=== PATIENT | female | born 1980 | race Caucasian/White ===

== ENCOUNTER → 2021-06-17 08:16 | Outpatient (CLI) | payer OTHER, SELFPAY ==
[2021-06-17 09:05] LABS: Add Manual Diff / Slide Review NO; Basophils Absolute Auto 100 /uL (0-100); Eosinophils Absolute Auto 200 /uL (0-450); Eosinophils Percent Auto 3.3 % (2-4); Hemoglobin 13.1 g/dL (12.0-16.0); Lymphocytes Absolute Auto 2000 /uL (1100-4500); Lymphocytes Percent Auto 36.1 % (25-40); Mean Corpuscular HGB Conc 33.7 % (30-36); Mean Corpuscular Hemoglobin 30.7 PG (26-34); Mean Corpuscular Volume 91.2 fL (80-100); Monocytes Absolute Auto 400 /uL (0-900); Monocytes Percent Auto 6.9 % (3-14); Neutrophils Absolute Auto 2900 /uL (1500-7000); Neutrophils Percent Auto 52.7 % (50-75); Platelet Count 292 X10^3/uL (150-400); Red Blood Cell Count 4.28 X10^6/uL (4.0-5.2); Red Cell Distribution Width 13.4 % (11.6-14.8); White Blood Cell Count 5.6 X10^3/uL (4.5-11.0)
[2021-06-17 09:53] LABS: Alanine Aminotransferase 14 IU/L (<35); Albumin 4.2 g/dL (3.5-5.0); Albumin Globulin Ratio 1.6 (1.0-2.8); Alkaline Phosphatase 58 U/L (38-126); Aspartate Aminotransferase 20 IU/L (14-36); BUN Creatinine Ratio 20.8 (6-22); Bilirubin Total 0.4 mg/dL (0.2-1.3); Blood Urea Nitrogen 16 mg/dL (7-17); Calcium 9.2 mg/dL (8.4-10.2); Carbon Dioxide 27 mmol/L (22-32); Chloride 104 mmol/L (98-107); Cholesterol 202 mg/dL (140-199); Estimated Glomerular Filt Rate > 60.0 mL/min (>60); Globulin 2.6 g/dL (1.7-4.1); Glucose 91 mg/dL (70-100); HDL Cholesterol 44 mg/dL (40-60); HEMOLYSIS < 15 (0-50); LDL Cholesterol Calculated 120 mg/dL (<100); Potassium 4.3 mmol/L (3.4-5.1); Sodium 140 mmol/L (137-145); Total Protein 6.8 g/dL (6.3-8.2); Triglycerides 191 mg/dL (35-150)
[2021-06-17 10:20] LABS: TSH w/ Reflex to FT4 1.68 uIU/mL (0.47-4.68)
== END ==
PROVIDERS: PCP Family Medicine; Referring Provider Family Medicine; Visit Provider Family Medicine
DX: G43.009 Migraine without aura, not intractable, without status migrainosus (principal); L70.9 Acne, unspecified; R63.5 Abnormal weight gain
CPT/HCPCS: 36415; 80053; 80061; 84443; 85025

== ENCOUNTER → 2021-07-14 15:46 | Outpatient (CLI) | payer OTHER, SELFPAY ==
[2021-07-14 17:33] LABS: Pregnancy Test Urine Negative (Negative)
== END ==
PROVIDERS: PCP Family Medicine; Referring Provider Family Medicine; Visit Provider Family Medicine
DX: N92.6 Irregular menstruation, unspecified (principal)
CPT/HCPCS: 81025

== ENCOUNTER → 2022-10-05 06:49 | Outpatient (CLI) | payer OTHER, SELFPAY ==
--- NOTE | 2022-10-05 06:50 | DI.US.S_ITS ---
PROCEDURE: US PELVIC COMPLETE INDICATIONS: left lower abdominal pain TECHNIQUE: Real-time scanning was performed of the pelvic organs, with image documentation. Additional endovaginal scanning was necessary due to incomplete visualization of the adnexal and endometrial structures by transabdominal scanning. COMPARISON: None. FINDINGS: Uterus: Uterus is anteverted and normal in size at 9.8 x 5.1 x 6.4 cm. The myometrium is homogeneous. The endometrium measures 14.3 mm combined thickness. No abnormal vascularity can be seen along the endometrial stripe. Incidental note is made of nabothian cysts. The largest nabothian cyst measures up to 1.9 cm. Ovaries: The right ovary measures 3.5 x 1.6 x 1.8 cm, with a calculated ovarian volume of 5.3 cc. The left ovary measures by 2.8 x 3.1 x 1.6 cm, with a calculated ovarian volume of 6.9 cc. The ovaries have a normal sonographic appearance. Less than 12 follicles can be seen in each ovary. No adnexal masses are seen. Other: No pathologic free abdominal or pelvic fluid. IMPRESSION: No imaging explanation is found for this patient's presenting symptoms. We strive to produce accurate, complete, and clear reports of imaging services. To assist us in improving patient care, this report was composed using standard report templates and voice recognition software. Therefore, it may contain abnormal punctuation, insertions and/or omissions. Occasional wrong-word or sound-alike substitutions may occur. Though we review the report and make efforts to correct it, we do recommend that the report be read carefully in proper context to recognize any text inaccuracies. Dictated by: Santos Maher M.D. on 10/05/2022 at 13:11 Transcribed by: EDWIN on 10/05/2022 at 13:32 Approved by: Santos Maher M.D. on 10/05/2022 at 16:47
[2022-10-05 08:30] LABS: Pregnancy Test Urine Negative (Negative)
== END ==
PROVIDERS: PCP Family Medicine; Referring Provider Family Medicine; Visit Provider Family Medicine
DX: N88.8 Other specified noninflammatory disorders of cervix uteri; R10.32 Left lower quadrant pain; Z30.09 Encounter for other general counseling and advice on contraception
CPT/HCPCS: 76830; 76856; 81025; 93975

== ENCOUNTER → 2022-11-25 | Outpatient (CLI) | payer OTHER, SELFPAY ==
--- NOTE | 2022-11-25 13:01 | DI.MG.S_ITS ---
BILATERAL DIGITAL SCREENING MAMMOGRAM 3D/2D WITH CAD: 11/25/2022 CLINICAL: Routine screening. Family history of breast cancer. Baseline exam. No prior exams were available for comparison. Both breasts are heterogeneously dense, which may obscure small masses (category c / 51-75% glandular tissue). Current study was also evaluated with a Computer Aided Detection (CAD) system. No significant masses, calcifications, or other findings are seen in either breast. IMPRESSION: NEGATIVE There is no mammographic evidence of malignancy. A 1 year screening mammogram is recommended. Based on the Tyrer Cuzick model (a risk assessment model) the patient's lifetime risk is 13.2% and her 10 year risk is 1.7%. According to the ACR, ACS, and NCCN guidelines, an annual breast MRI exam along with mammogram is recommended if the patient's lifetime risk is 20% or greater. This exam was interpreted at Station ID: [id number]. NOTE: For mammograms, a report in lay terms will be sent to the patient. Approximately 15% of breast malignancies will not be visualized mammographically. In the management of a palpable breast mass, a negative mammogram must not discourage biopsy of a clinically suspicious lesion. Electronically Signed By: Denisha garcía/remy:11/27/2022 11:58:58 letter sent: Normal Exam ACR BI-RADS Category 1: Negative 3341F
== END ==
LOC: MAMMO 13:01
PROVIDERS: PCP Family Medicine; Referring Provider Family Medicine; Visit Provider Family Medicine
DX: Z12.31 Encounter for screening mammogram for malignant neoplasm of breast (principal); Z80.3 Family history of malignant neoplasm of breast
CPT/HCPCS: 77063; 77067

== ENCOUNTER → 2022-11-27 07:15 | Outpatient (CLI) | payer OTHER, SELFPAY ==
[2022-11-27 09:20] LABS: Glucose 98 mg/dL (70-100)
[2022-11-27 09:32] LABS: Follicle Stimulating Hormone 3.35 mIU/mL; Luteinizing Hormone 6.59 mIU/mL
== END ==
PROVIDERS: PCP Family Medicine; Referring Provider Obstetrics & Gynecology; Visit Provider Obstetrics & Gynecology
DX: L70.9 Acne, unspecified (principal); E28.2 Polycystic ovarian syndrome
CPT/HCPCS: 36415; 82947; 83001; 83002; 83525

== ENCOUNTER 2022-12-18 08:38 | Day surgery (SDC) | payer OTHER, SELFPAY ==
[2022-12-13 08:25] VITALS: BMI 25.4
[2022-12-18 08:57] VITALS: BMI 25.4
[2022-12-18 09:02] VITALS: BP 113/73; PULSE 68; RESP 19; TEMP 36.6; O2SAT 97
[2022-12-18] MEDS: SCOPOLAMINE 1 PATCH TOP (09:13)
[2022-12-18] MEDS: LACTATED RINGERS 1,000 ML 42 ML IV (09:13)
[2022-12-18] MEDS: ACETAMINOPHEN 325 MG TABLET 975 MG PO (09:13)
--- NOTE | 2022-12-18 09:25 | PM.GYNHP.1 ---
History of Present Illness History of Present Illness Reason for admission: pelvic pain Narrative: Asiya Levy is a 42 year old female 4 para 4 who presents for a diagnostic laparoscopy with possible lysis of adhesions due to pelvic pain and hormonal imbalance. Patient reports that after her she started having irritable bowel symptoms and pelvic pain. [facility] Medical History (Updated 12/13/22 @ 08:31 by Piedad Ag RN) Acne (~2018) Allergies Anxiety Chicken pox Depression (~2010) Herpes (~2003) Migraine headache without aura (~2015) Psoriasis Surgical History (Updated 06/01/21 @ 19:25 by Fatoumata Melara) Anesthesia History of section Family History (Updated 06/01/21 @ 19:26 by Fatoumata Melara) Sister Mental health problem History of heart disease Social History household members: spouse and children Smoking Status: Former smoker alcohol intake: never Meds Home Medications and Allergies Home Medications Medication Instructions Recorded Confirmed Type escitalopram oxalate 10 mg tablet 10 mg PO DAILY #90 tabs 10/30/22 12/18/22 Rx (Lexapro) norgestimate 0.25 mg-ethinyl 1 tab PO DAILY #84 tabs 11/23/22 12/18/22 Rx estradiol 35 mcg tablet (Sanders-Linyah) sumatriptan succinate 25 mg tablet See Rx Instructions .Route 12/14/22 12/18/22 Rx .COMPLEX #30 tabs ciclesonide 37 mcg/actuation nasal 1 spray intranasal DAILY PRN 12/18/22 12/18/22 History HFA inhaler (Zetonna) Allergy Symptoms Allergies Allergy/AdvReac Type Severity Reaction Status Date / Time No Known Drug Allergies Allergy Verified 12/18/22 08:55 Exam Vital Signs (past 8 hours): - 12/18/22 09:02 Temperature 97.8 F Pulse Rate 68 Respiratory Rate 19 Blood Pressure 113/73 Pulse Oximetry 97 Oxygen Delivery Method Room Air Oxygen Delivery Method Room Air Narrative Exam Narrative: HEENT: No thyromegaly, no anterior cervical or supraclavicular lymphadenopathy. Lungs:Clear to auscultation bilaterally, no wheezes. Cardiovascular: Regular rate and rhythm, no murmurs, rubs, or gallops. Abdomen: Well-healed scars. No hepatosplenomegaly. No masses palpable. External genitalia: Normal Vagina: Normal Cervix: Normal Bimanual exam: 7 Week size anteverted uterus. Mobile. Slight adnexal tenderness. Extremities: No edema Assessment & Plan Assessment & Plan narrative: Assessment: 42-year-old 4 para 4 with pelvic pain and hormonal imbalance Plan: Diagnostic laparoscopy with possible lysis of adhesions The risks, benefits, and alternatives to the procedure were explained to the patient. The risks including bleeding, infection, injury to the bowel, bladder, or ureters. She understands these risks and agrees to proceed. A full par Q was held and consent form was signed. Time Spent With Patient Time with patient: less than 30 minutes
--- NOTE | 2022-12-18 09:28 | PM.PREOP ---
Pre-operative Note COVID-19 Criteria for continued procedure: Non-surgical alternatives not available or appropriate per current SOC Interval Note History & Physical reviewed/Exam performed by Physician: Yes Changes to H&P: No H&P completed within 30 days and has changed as indicated here:: 12/18/22
--- NOTE | 2022-12-18 09:53 | SUR.OPER ---
Lithotomy on padded OR bed, head on pillow, arms padded and tucked. Legs secured in padded yellow fins stirrups.
[2022-12-18] MEDS: BUPIVACAINE 0.5% (PF) 30 ML, EPINEPHrine 0.15 MG INJ (10:08)
[2022-12-18 10:45] VITALS: BP 94/57; PULSE 69; RESP 18; TEMP 36.3; O2SAT 91
--- NOTE | 2022-12-18 10:47 | P.OP_ITS ---
Operative Date/Time/Diagnoses Date of procedure: 12/18/22 Time of procedure: 10:47 Pre-op diagnosis: Pelvic pain Hormonal imbalance Post-op diagnosis: same Procedure & Clinicians Procedure: Procedures Operation Date: 12/18/22 09:45 Actual Procedure Side Surgeon p DX Laparoscopy poss. Lysis of Adhesions Yanci Joseph MD Indications: Pelvic pain Hormonal imbalance Surgeon: Yanci Joseph Anesthesia Type: General and Local Operative Notes Findings: 8 week size anteverted uterus Adhesions between the omentum and posterior cul-de-sac Adhesions between the bladder and uterus Adhesions between the left colon and anterior abdominal wall Left paratubal cyst Normal right tube and ovary Normal left ovary Normal appendix Normal liver and gallbladder Closure Type: primary Specimen(s): none Estimated blood loss (mL): 5 Blood products transfused: none Procedure in detail: After informed consent was obtained, the patient was taken to the operating room where she was placed in the dorsal supine position. After adequate general endotracheal anesthesia was achieved, she was placed in the dorsal lithotomy position, and prepped and draped in the usual sterile fashion. A time-out was performed. A bivalve speculum was placed into the vagina, and a single-tooth tenaculum was placed on the anterior lip of the cervix. The cervical os was sequentially dilated until the Zumi uterine manipulator could pass easily into the endometrial cavity. The single-tooth tenaculum was removed and the bivalve speculum was removed from the vagina. Attention was then turned to the abdomen where 6 cc of 0.5% Marcaine with epinephrine were injected in the umbilical fold. A 5 mm incision was made. The Veress needle was placed into the peritoneal cavity, and its placement confirmed by aspiration drop test. Initial inspection revealed adhesions between the left colon and anterior abdominal wall. Two other incisions were made after 6 cc of 0.5% Marcaine with epinephrine were injected. These were 4 cm lateral to the midline at the level of the umbilicus. Two 5 mm trocars were placed under direct visualization. An adhesion between the colon and anterior abdominal wall was taken down with the endo Murphy. No bleeding was noted. There were uterine to bladder adhesions that were filmy. These were taken down with the endo Murphy as well. Hemostasis was achieved. In the posterior cul-de-sac there was a piece of omentum that was stuck. This was grasped with an atraumatic grasper. Using the power seal, the adhesions between the posterior cul-de-sac and omentum were cauterized and cut. Hemostasis was achieved. There was a left paratubal cyst which was incised. Hemostasis was achieved. The instruments were removed from the abdomen. The CO2 was allowed to escape. The trocars were removed. All of the incisions were closed with 4-0 Monocryl in a subcuticular fashion. Steri- Strips and Allevyn dressings were placed. The Zumi uterine manipulator was removed from the uterus. Sponge, lap, and instrument counts were correct x2. The patient tolerated the procedure well, and was taken to PACU in stable condition. Complications: none Post-operative Condition: stable Disposition: PACU Plan for aftercare: Home after recovery
[2022-12-18 10:50] VITALS: BP 95/58; PULSE 77; RESP 18; O2SAT 95
[2022-12-18 10:55] VITALS: BP 98/63; PULSE 73; RESP 16; TEMP 36.6; O2SAT 93
[2022-12-18 11:05] VITALS: BP 108/70; PULSE 75; RESP 14; TEMP 36.6; O2SAT 94
== END 2022-12-18 11:27 | disposition home or self-care (01) ==
PROVIDERS: PCP Family Medicine; Referring Provider Obstetrics & Gynecology; Visit Provider Obstetrics & Gynecology
PROC: (CPT 58660; principal; 2022-12-18 09:45)
DX: N73.6 Female pelvic peritoneal adhesions (postinfective) (principal); R10.2 Pelvic and perineal pain; E34.9 Endocrine disorder, unspecified
CPT/HCPCS: 58660; J0171; J1100; J1885; J2250; J2405; J2704; J3010; J3490